=== PATIENT | female | born 1975 | race African-American/Black ===

== ENCOUNTER 2018-01-29 14:36 | Inpatient (IN) | payer OTHER ==
[2018-01-29] MEDS ORDERED: SODIUM CHLORIDE 1,000 ML IV STA ×2 (15:44→21:46)
--- NOTE | 2018-01-29 15:51 | PDOC ---
Attending Attestation - Resident Resident Name: Kerry Sifuentes - ED Attending Attestation I have performed the following: I have examined & evaluated the patient, The case was reviewed & discussed with the resident, I agree w/resident's findings & plan, Exceptions are as noted - HPI HPI: 01/29/18 15:51 The patient is a 42 year old transgender Female with a significant past medical history of sickle cell (+acute chest in the past, s/p exchange transfusion), hx of DVT (currently off a/c), HIV, sent for evaulation of LLE pain for the past few days from [facility] where she is currently undergoing detox from heroin. No history of trauma/injuries, She reports her pain is 7/10 in severity consistent with prior episodes of her sickle cell./ pt ntoes that she hesitated in telling anyone at rehab due to concern that she is undergoing rehab and thought she could tough it out, also expresses concern of narcotic analgesia as she is underoing detox. (she normally gets dialudid and beandryl for pain). The patient denies chest pain, shortness of breath, fever/chills, cough, headache and dizziness. The patient denies nausea, vomit, diarrhea and constipation. The patient denies dysuria, frequency, urgency and hematuria. Pt denies any headache, back pain, numbness/tingling/weakness. Allergies: NKDA - Physicial Exam PE: 01/29/18 17:32 GENERAL: The patient is awake, alert, and fully oriented, Nontoxic - in no acute distress. HEAD: Normocephalic, atraumatic. EYES: extraocular movements intact, sclera anicteric, conjunctiva clear. ENT: Normal voice, Moist mucous membranes. NECK: Normal range of motion, supple LUNGS: Breath sounds equal, clear to auscultation bilaterally. No wheezes, no rhonchi, no rales. HEART: Regular rate and rhythm, normal S1 and S2 without murmur, rub or gallop. ABDOMEN: Soft, nontender, normoactive bowel sounds. No guarding, no rebound. . No CVA tenderness EXTREMITIES: mild diffus tenderness of LLE, +pitting edema of LLE, +calf tenderness of LLE. NEUROLOGICAL: No facial assymetry, Normal speech, PSYCH: Normal mood, normal affect. SKIN: Warm, Dry, normal turgor, - Medical Decision Making 01/29/18 17:32 likely sickle cell pain crisis, no change from prior concern for possible dvt will obtain blood work will obtain dvt study no cp/cough/sob to suggest acute chest pt declines morphine, states she would like to try non opiates will try ketamine at 0.25mg/kg, and tylenol. if not effective will try morphine 01/29/18 19:32 labs noted for elev retic count slight anemia (pt notes she is tranfused when she is in the low 7s) pt still has pain w/ ketamine, anticipate admission for further management of her pain
[2018-01-29] MEDS ORDERED: ACETAMINOPHEN INJECTION 100 ML IVPB ONE (16:10)
[2018-01-29] MEDS: ACETAMINOPHEN 1000 MG/100 ML VIAL (NON FORMULARY) IVPB ONE ×2 (16:25→18:00)
[2018-01-29] MEDS ORDERED: KETAMINE HCL 200 MG/20 ML VIAL IVPUSH ONE (17:14)
[2018-01-29 17:21] LABS: EOS % 3.9 % (0-4.5); HEMATOCRIT 22.6 % (32.4-45.2); HEMOGLOBIN 7.9 GM/dL (10.7-15.3); LYMPH % 31.9 % (8-40); MCH 29.6 pg (25.7-33.7); MEAN CELL VOLUME 84.6 fl (80-96); MEAN PLT VOLUME 7.6 fl (7.5-11.1); MONO % 7.9 % (3.8-10.2); NEUT % 55.3 % (42.8-82.8); PLATELET COUNT 583 K/MM3 (134-434); RBC 2.66 M/mm3 (3.60-5.2); RDW 18.1 % (11.6-15.6); RETICULOCYTES 5.77 % (0.5-1.5); WHITE BLOOD COUNT 17.8 K/mm3 (4.0-10.0)
[2018-01-29] MEDS ORDERED: ONDANSETRON 4 MG/2 ML VIAL IVPUSH ONE (17:32)
[2018-01-29] MEDS ORDERED: KETAMINE HCL 500 MG/10 ML VIAL IV ONE (17:34)
--- NOTE | 2018-01-29 17:48 | PDOC ---
History of Present Illness - General Chief Complaint: Pain Stated Complaint: SICKLE CELL CRISIS Time Seen by Provider: 01/29/18 14:44 - History of Present Illness Initial Comments: 42yo transgender female with PMH of Sickle Cell SS, substance abuse, HIV+, DVT complaining of sickle cell crisis. Patient reports that her symptoms are consistent with previous crises and rates her pain at 7-8/10, localized to her knee and radiating downward. She is currently in an inpatient rehabilitation program at [facility] for substance abuse. Denies fever, chills, chest pain, shortness of breath, nausea, vomiting, or abdominal pain. 01/29/18 17:47 Past History - Past Medical History Allergies/Adverse Reactions: Allergies Allergy/AdvReac Type Severity Reaction Status Date / Time NSAIDS (Non-Steroidal Allergy Verified 01/29/18 14:43 Anti-Inflamma Home Medications: Ambulatory Orders Darunavir Ethanolate [Prezista] 800 mg PO DAILY 01/24/18 Folic Acid 1 mg PO DAILY 01/24/18 Raltegravir [Isentress] 400 mg PO BID 01/24/18 Ritonavir [Norvir -] 100 mg PO DAILY 01/24/18 Sertraline HCl 50 mg PO DAILY #30 tablet 01/29/18 Anemia: No Asthma: No Cancer: No Cardiac Disorders: No CVA: No COPD: No CHF: No Diabetes: No GI Disorders: No Disorders: No HTN: No Hypercholesterolemia: No Kidney Stones: No Liver Disease: No Seizures: No Thyroid Disease: No - Surgical History Cholecystectomy: Yes (05/2015) - Reproductive History PID: No - Suicide/Smoking/Psychosocial Hx Smoking History: Former smoker Have you smoked in the past 12 months: Yes Information on smoking cessation initiated: No 'Breaking Loose' booklet given: 01/24/18 Hx Alcohol Use: No Drug/Substance Use Hx: Yes Substance Use Type: Heroin Hx Substance Use Treatment: No Review of Systems - Review of Systems Comments:: Constitutional: no fever, no chills HEENT: no throat pain, no dysphagia Cardiovascular: no chest pain, no palpitations Respiratory: no cough, no shortness of breath Gastrointestinal: no abdominal pain, no nausea, no vomiting, no diarrhea, no constipation Genitourinary: no dysuria, no frequency Musculoskeletal: no myalgia, no arthralgia Skin: no rash, no itching Neurologic: no headache, no dizziness *Physical Exam - Vital Signs Last Vital Signs Temp Pulse Resp BP Pulse Ox 98.1 F 94 H 18 117/81 99 01/29/18 14:43 01/29/18 14:43 01/29/18 14:43 01/29/18 14:43 01/29/18 14:43 - Physical Exam Comments: General: Awake, alert, and fully oriented, in no acute distress Head: no signs of trauma Eyes: PERRL, EOMI, sclera anicteric ENT: moist mucus membranes, Neck: Normal ROM, supple, no lymphadenopathy, JVD, or masses Lungs: Lungs clear, Normal breath sounds Cardio: Regular rhythm, S1 and S2 present, no murmurs, rubs, or gallops Abdomen: Soft, nontender, normal bowel sounds. No guarding, no rebound, no masses Extremities: +tender left leg to movement/palpation starting superior to the knee and radiating downward, distal pulses present in all four extremities SKIN: Warm, Dry, normal turgor, no rashes or lesions noted Neurologic: Cranial nerves II through XII grossly intact. Normal speech ED Treatment Course - LABORATORY CBC & Chemistry Diagram: 01/29/18 17:10 01/29/18 17:10 - ADDITIONAL ORDERS Additional order review: 01/29/18 17:10 RBC 2.66 L MCV 84.6 MCHC 35.0 RDW 18.1 H MPV 7.6 Neutrophils % 55.3 Lymphocytes % 31.9 Monocytes % 7.9 Eosinophils % 3.9 Basophils % 1.0 - RADIOLOGY Radiology Studies Ordered: Category Date Time Status CHEST PA & LAT [RAD] Stat Radiology 01/29/18 15:44 Ordered - Medications Given in the ED: ED Medications Discontinued Medications Generic Name Dose Route Start Last Admin Trade Name Freq PRN Reason Stop Dose Admin Acetaminophen 1,000 mg 01/29/18 15:54 01/29/18 16:25 Ofirmev Injection - IVPB 01/29/18 15:55 1,000 mg ONCE ONE Administration Sodium Chloride 1,000 mls @ 1,000 mls/hr 01/29/18 15:44 01/29/18 16:25 Normal Saline - IV 01/29/18 16:43 1,000 mls/hr ASDIR STA Administration Medical Decision Making - Medical Decision Making 42yo F with sickle cell SS. Crisis is consistent with previous episodes. While patient usually receives dilaudid for similar crises, she is currently in a substance abuse rehabilitation program and is amenable to trying alternative treatment. Ordered labs: CBC, CMP, Haptoglobin, LDH, Reticulocyte, Chest PA/Lat ; Giving Ketamine, Benadryl, Zofran, IV Fluids 01/29/18 18:08 Ketamine did not alleviate the patient's pain. Morphine ordered. CXR shows "no acute disease." IV access was very difficult in this patient, delaying morphine administration. Patient now also endorsing pain in right leg and right lower abdomen. Patient refused ultrasound until she received pain medication. Reticulocytes count elevated at 5.77 indicating hemolysis. Hemoglobin trending downward, now at 7.9. Patient says she usually receives transfusions when her level decreases below 7. 01/29/18 20:56 Laboratory Tests 01/29/18 01/29/18 01/29/18 17:10 17:10 17:10 WBC 17.8 H RBC 2.66 L Hgb 7.9 L Hct 22.6 L MCV 84.6 MCH 29.6 MCHC 35.0 RDW 18.1 H Plt Count 583 H MPV 7.6 Absolute Neuts (auto) 9.8 Total Counted 100 Neutrophils % 55.3 Neutrophils % (Manual) 54.0 Band Neutrophils % 2.0 Lymphocytes % 31.9 Lymphocytes % (Manual) 35.0 Monocytes % 7.9 Monocytes % (Manual) 7 Eosinophils % 3.9 Eosinophils % (Manual) 2.0 Basophils % 1.0 Nucleated RBC % 1 H Hypochromia 2+ Platelet Estimate Increased Platelet Comment No clumping noted Polychromasia 1+ Anisocytosis 1+ Microcytosis 1+ Target Cells 2+ Tear Drop Cells 1+ Ovalocytes 1+ Retic Count 5.77 H Sodium 137 Potassium 5.0 Chloride 106 Carbon Dioxide 22 Anion Gap 9 BUN 14 Creatinine 1.0 Creat Clearance w eGFR > 60 Random Glucose 108 H Calcium 8.6 Total Bilirubin 0.7 AST 47 H ALT 52 Alkaline Phosphatase 104 D LD Total 256 H Total Protein 7.3 Albumin 3.5 Blood Type O POSITIVE Antibody Screen Negative Spoke with Dr. Moore's inpatient team who will accept this patient. 01/29/18 22:35 *DC/Admit/Observation/Transfer Diagnosis at time of Disposition: Sickle cell crisis - Discharge Dispostion Condition at time of disposition: Stable Decision to Admit order: Yes - Referrals - Patient Instructions - Post Discharge Activity
[2018-01-29 17:50] LABS: ALBUMIN 3.5 g/dl (3.4-5.0); ANION GAP 9 (8-16); BILIRUBIN,TOTAL 0.7 mg/dL (0.2-1.0); BLOOD UREA NITROGEN 14 mg/dL (7-18); CALCIUM 8.6 mg/dL (8.5-10.1); CHLORIDE 106 mmol/L (98-107); CO2 22 mmol/L (21-32); GLUCOSE,RANDOM 108 mg/dL (74-106); SGPT/ALT 52 U/L (12-78); SODIUM 137 mmol/L (136-145); TOT PROT 7.3 g/dl (6.4-8.2)
[2018-01-29 17:51] LABS: ALK PHOS 104 U/L (45-117)
[2018-01-29 18:00] LABS: SGOT/AST 47 U/L (15-37)
[2018-01-29 18:01] LABS: LDH 256 U/L (84-246)
[2018-01-29 18:03] LABS: ANISOCYTOSIS 1+; OVALOCYTE 1+; TARGET CELLS 2+; TEAR DROP CELLS 1+
[2018-01-29 18:04] LABS: PLATELET ESTIMATE INCREASED
[2018-01-29] MEDS ORDERED: ONDANSETRON 4 MG/2 ML VIAL ONE ×2 (18:28→18:29)
[2018-01-29] MEDS ORDERED: KETAMINE HCL 200 MG/20 ML VIAL IVPB ONE (18:30)
[2018-01-29] MEDS ORDERED: morphine CARPU-JECT 4 MG/1 ML DISP.SYRIN IVPUSH ONE (19:30)
[2018-01-29] MEDS ORDERED: MORPHINE SULFATE 2 MG/ML VIAL ONE (19:51)
[2018-01-29] MEDS ORDERED: morphine SULFATE 4 MG/ML VIAL ONE (19:51)
[2018-01-29] MEDS ORDERED: morphine CARPU-JECT 2 MG/1 ML DISP.SYRIN IVPUSH ONE (22:04)
[2018-01-29] MEDS ORDERED: MORPHINE SULFATE 10 MG/1 ML *VIAL ONE (22:10)
--- NOTE | 2018-01-29 22:41 | HP ---
CHIEF COMPLAINT: PCP: HISTORY OF PRESENT ILLNESS: 42 y/o transgender male to F w/ PMH of sickle cell (+acute chest in the past, s /p exchange transfusion), hx of DVT (currently off a/c), HIV disease on HAART ( Biktarvy), p/w LLE pain for the past few days from [facility] where she is currently undergoing detox from heroin. Pain is 8/10 in severity consistent with prior episodes of her sickle cell. Describes as achy and located above knee and radiates to the foot. Tried bengay, tylenol, and flexoral but didnt help. Does not know any known triggers, says she was drinking well, wasn't cold , and denies any stress. She has had multiple episodes of chest syndrome requiring exchange transfusion ( 5 in her life), multiple prior blood transfusions, and intubations with ICU care. Gets a crisis every 1-2 mo. last crisis was a month ago and required ICU but no intubation. Has gone 17 mo w/o crisis, longest time Denies fever, chills, chest pain, shortness of breath, nausea, or vomiting, or trauma. ER course was notable for: (1) zofran, fluids, ketamine x2 (per pt request, did not want to start w/ opiates bec in rehab, benadryl, morphine total 16mg (2) pt began endorsing R leg pain and RLQ RUQ pain, (3)LLE duplex - negative for DVT Recent Travel: PAST MEDICAL HISTORY: [facility] 01/24 Last detox prior to [facility] July 2016 osteo-necrosis right knee and hip PAST SURGICAL HISTORY: jimmy splenectomy 2010 - UTD immunization, does not take Flu shots Social History: Smoking: intermittent use 0.5ppd/25yr Alcohol:social Drugs: cocaine heroine crystal meth Family History: CA: Father (, throat CA, sickle cell trait), Other: Father, Mother ( sickle cell trait, HTN , alive ) Allergies NSAIDS (Non-Steroidal Anti-Inflamma Allergy (Verified 01/29/18 14:43) HOME MEDICATIONS: HAART therapy switched to biktarvy Home Medications Medication Instructions Recorded Darunavir Ethanolate [Prezista] 800 mg PO DAILY 01/24/18 Folic Acid 1 mg PO DAILY 01/24/18 Raltegravir [Isentress] 400 mg PO BID 01/24/18 Ritonavir [Norvir -] 100 mg PO DAILY 01/24/18 Sertraline HCl 50 mg PO DAILY #30 tablet 01/29/18 REVIEW OF SYSTEMS Reviewed in HPI PHYSICAL EXAMINATION Vital Signs - 24 hr 01/29/18 01/29/18 14:43 19:06 Temperature 98.1 F Pulse Rate 94 H Respiratory 18 Rate Blood Pressure 117/81 O2 Sat by Pulse 99 99 Oximetry (%) GENERAL: Awake, alert, and fully oriented, anxious and agitated HEAD: Normal with no signs of trauma. EYES: Pupils equal, round and reactive to light, extraocular movements intact, sclera anicteric, conjunctiva clear. No lid lag. EARS, NOSE, THROAT: Ears normal, nares patent, oropharynx clear without exudates. Moist mucous membranes. NECK: Normal range of motion, supple without lymphadenopathy, JVD, or masses. LUNGS: large Breasts Breath sounds equal, clear to auscultation bilaterally. No wheezes, and no crackles. No accessory muscle use. HEART: Tachy Regular rhythm, normal S1 and S2 without murmur, rub or gallop. ABDOMEN: TTP RUQ RLQ, exam somewhat limited pt would not let touch. distended normoactive bowel sounds, no guarding, no rebound, no masses. No hepatomegaly MUSCULOSKELETAL: Normal range of motion at all joints. No bony deformities or tenderness. No CVA tenderness. UPPER EXTREMITIES: 2+ pulses, warm, well-perfused. No cyanosis. No clubbing. No peripheral edema. LOWER EXTREMITIES: 2+ pulses, warm, well-perfused. No peripheral edema. TTP LE calf b/l, exam somewhat limited pt would not let touch NEUROLOGICAL: Cranial nerves II-XII intact. Normal speech. Normal gait. SKIN: Warm, dry, normal turgor, no rashes or lesions noted, normal capillary refill. Laboratory Results - last 24 hr 01/29/18 01/29/18 01/29/18 17:10 17:10 17:10 WBC 17.8 H RBC 2.66 L Hgb 7.9 L Hct 22.6 L MCV 84.6 MCH 29.6 MCHC 35.0 RDW 18.1 H Plt Count 583 H MPV 7.6 Absolute Neuts (auto) 9.8 Total Counted 100 Neutrophils % 55.3 Neutrophils % (Manual) 54.0 Band Neutrophils % 2.0 Lymphocytes % 31.9 Lymphocytes % (Manual) 35.0 Monocytes % 7.9 Monocytes % (Manual) 7 Eosinophils % 3.9 Eosinophils % (Manual) 2.0 Basophils % 1.0 Nucleated RBC % 1 H Hypochromia 2+ Platelet Estimate Increased Platelet Comment No clumping noted Polychromasia 1+ Anisocytosis 1+ Microcytosis 1+ Target Cells 2+ Tear Drop Cells 1+ Ovalocytes 1+ Retic Count 5.77 H Sodium 137 Potassium 5.0 Chloride 106 Carbon Dioxide 22 Anion Gap 9 BUN 14 Creatinine 1.0 Creat Clearance w eGFR > 60 Random Glucose 108 H Calcium 8.6 Total Bilirubin 0.7 AST 47 H ALT 52 Alkaline Phosphatase 104 D LD Total 256 H Total Protein 7.3 Albumin 3.5 Blood Type O POSITIVE Antibody Screen Negative ASSESSMENT/PLAN: 42 y/o transgender male to F w/ PMH of sickle cell (+acute chest in the past, s /p exchange transfusion), hx of DVT (currently off a/c), HIV disease on HAART ( Biktarvy), p/w LLE pain for the past few days consistent with prior episodes of sickle cell pain crisis. pt from [facility] where she is currently undergoing detox from heroin. Sickle Cell vaso occlusive Crisis - Doppler scan r/o DVT in her LLE. Her new RLQ RUQ pain is concerning - will get a CT abdomen to rule out appendicitis. -tx with IV morphine 6 mg q 3 hours PRN, benadryl 12.5 mg PO q 6 hours and NS at 100 ml/hour -can increase morphine if pain remains unctl -pain management consult Hb was 9.2 on 01/25/18 at [facility] and now is 7.9 - she may have been dehydrated because BUN/Cr was 25/1.5 mg/dL on 01/25/18. She does not know her baseline HCT. -will not transfuse at this time -monitor HCT and retic count. -Consult hematology. HIV disease - Per pt CD4 788 w/ undect viral load -Continue HAART. -Consult ID. Substance abuse - -return to [facility] to continue rehab upon discharge. -encourage cessation and give support Tobacco Use -Nicotine patch -encourage cessation and give support #FEN -IV NS 100cc/hr -replete lytes as needed -NPO for now for possible acute abd, f/u CT A/P #DVTppx SQH 5000U tid #Dispo -admit to meds surg -Full code case and plan discussed w/ attending Dr. Teresa Orozco MD, PGY1 Visit type - Emergency Visit Emergency Visit: Yes ED Registration Date: 01/30/18 Care time: The patient presented to the Emergency Department on the above date and was hospitalized for further evaluation of their emergent condition. - New Patient This patient is new to me today: Yes Date on this admission: 01/30/18 - Critical Care Critical Care patient: No Hospitalist Screening - Colonoscopy Questionnaire Colonoscopy Questionnaire: Colonoscopy Questionnaire - Patient: 50 - 75 years old and never had a screening colonoscopy: Unknown History of colon or rectal polyps, or CA: Unknown History of IBD, Crohn's disease or UC: Unknown History of abdominal radiation therapy as a child: Unknown - Relative: 1 with colon or rectal CA, or polyps at age 60 or younger: Unknown Colon or rectal CA diagnosed at age 45 or younger: Unknown Multiple relatives with colon or rectal CA: Unknown - Outcome: Screening Result: Negative Screen
--- NOTE | 2018-01-29 22:49 | PN ---
Teaching Attending Note Name of Resident: Kaiden Orozco ATTENDING PHYSICIAN STATEMENT I saw and evaluated the patient. I reviewed the resident's note and discussed the case with the resident. I agree with the resident's findings and plan as documented. SUBJECTIVE: Patient is a 42 year old transgender female with PMH of Sickle Cell SS, substance abuse, splenectomy, depression, osteonecrosis of right hip and knee, HIV disease on HAART (Biktarvy) and DVT complaining of left knee and leg pain. Patient reports that her symptoms are consistent with previous crises and rates her pain at 7-8/10, localized to her knee and radiating downward. She is currently in an inpatient rehabilitation program at [facility] for substance abuse (cocaine and heroin). She has had multiple episodes of chest syndrome requiring exchange transfusion, prior blood transfusions, and intubation with ICU care. Denies fever, chills, chest pain, shortness of breath, nausea, or vomiting. While in the ER she started complaining of RLQ abdominal pain - not a usual site for her sickle cell pain crisis. OBJECTIVE: Vital Signs Period Temp Pulse Resp BP Sys/Llily Pulse Ox Last 24 Hr 98.1 F 94 18 117/81 99-99 HEENT: No Jaundice, eye redness or discharge, PERRLA, EOMI. Normocephalic, atraumatic. External ears are normal and hearing is grossly intact. No nasal discharge. Neck: Supple, nontender. No palpable adenopathy or thyromegaly. No JVD Chest: Good effort. Clear to auscultation and percussion. Heart: Regular. No S3, rub or murmur Abdomen: Not distended, soft, RLQ tenderness; no Hepatomegaly. No rebound or guarding. Normoactive bowel sounds. Ext: Peripheral pulses intact. Left leg edema - not tender. Skin: Warm and dry. No petechiae, rash or ecchymosis. Neuro: Alert. Oriented x3. CN 2-12 grossly intact. Sensation grossly intact in all four extremities and DTR are symmetric. Home Medications Medication Instructions Recorded Darunavir Ethanolate [Prezista] 800 mg PO DAILY 01/24/18 Folic Acid 1 mg PO DAILY 01/24/18 Raltegravir [Isentress] 400 mg PO BID 01/24/18 Ritonavir [Norvir -] 100 mg PO DAILY 01/24/18 Sertraline HCl 50 mg PO DAILY #30 tablet 01/29/18 Abnormal Lab Results 01/29/18 01/29/18 17:10 17:10 WBC 17.8 H RBC 2.66 L Hgb 7.9 L Hct 22.6 L RDW 18.1 H Plt Count 583 H Nucleated RBC % 1 H Retic Count 5.77 H Random Glucose 108 H AST 47 H LD Total 256 H ASSESSMENT AND PLAN: 1. Sickle Cell Pain Crisis - Has features of sickle cell vaso-occlusive crisis. Will treat with IV morphine 6 mg q 3 hours PRN, benadryl 12.5 mg PO q 6 hours and NS at 100 ml/hour as well as liberal oral fluids. Her Hb/HCT was 9.2/26.4 on 01/25/18 - she may have been dehydrated (hemoconcentration) because BUN/Cr then was 25/1.5 mg/dL. She does not know her baseline HCT. We will not transfuse her at this time, but monitor HCT and retic count. Doppler scan ruled out DVT in her LLE. Her RLQ pain is concerning - will get a CT abdomen to rule out appendicitis or other intra-abdominal pathology. Consult hematology. 2. HIV disease - Continue HAART. Consult ID. 3. Tobacco Use We will provide patient all the necessary assistance to facilitate smoking cessation and prescribe Nicotine patch. 4. 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 5. DVT prophylaxis - Heparin 5000u sq tid. 6. Advance directives - Full code
[2018-01-30 00:24] VITALS: BP 150/89; PULSE 76; TEMP 98; BMI 28.1
[2018-01-30] MEDS ORDERED: MORPHINE SULFATE 10 MG/1 ML *VIAL IVPUSH PRN (01:02)
[2018-01-30] MEDS ORDERED: SODIUM CHLORIDE 1,000 ML IV SCH (01:15)
[2018-01-30] MEDS ORDERED: MELATONIN 5 MG TABLETS PO PRN (01:27)
[2018-01-30] MEDS ORDERED: HYDROmorphone HCL CARPU-JECT 1 MG/1 ML DISP.SYRIN IVPUSH PRN (02:07)
[2018-01-30] MEDS ORDERED: DOCUSATE SODIUM 100 MG CAPSULE (FP) PO PRN (02:09)
[2018-01-30] MEDS ORDERED: HYDROmorphone HCL 2 MG TABLET PO PRN (02:29)
[2018-01-30] MEDS ORDERED: HEPARIN NA (PORCINE) 5,000 UNITS/ML 1ML VIAL SQ SCH (06:00)
--- NOTE | 2018-01-30 06:45 | DS ---
Physical Examination Vital Signs: Vital Signs Temperature 98.0 F 01/30/18 00:16 Pulse Rate 76 01/30/18 00:16 Respiratory Rate 20 01/30/18 00:16 Blood Pressure 150/89 01/30/18 00:16 O2 Sat by Pulse Oximetry (%) 100 01/30/18 00:26 Labs: CBC, BMP 01/29/18 17:10 01/29/18 17:10 Discharge Summary Reason For Visit: SICKLE CELL CRISIS/HB-SS DISEASE WITH CRISIS Condition: Stable - Instructions Referrals: ON STAFF,NOT [Primary Care Provider] - Disposition: AGAINST MEDICAL ADVICE - Home Medications Comprehensive Discharge Medication List: Ambulatory Orders 42 y/o transgender male to F w/ PMH of sickle cell (+acute chest in the past, s /p exchange transfusion), hx of DVT (currently off a/c), HIV disease on HAART ( Biktarvy), p/w LLE pain for the past few days consistent with prior episodes of sickle cell pain crisis. pt from [facility] where she is currently undergoing detox from heroin. Pt received in ED ketamine x2 (per pt request, did not want to start w/ opiates bec in rehab), benadryl, Ketamine was unsuccessful and so she was switched to morphine which helped. On the floors, pain ctl was attempted w/ increasing doses of morphine, which pt refused to take, pt stated that Dilaudid worked for her in the past but then refused our rec for low starting PO dose of Dilaudid. Pt requested high doses and threatened to leave if not given the high dose. We explained to her the risks of starting w/ high dose and the benefit of gradual escalation to find therapeutic and safe dose. Pt became verbally aggressive, refused to take low dose and subsequently left AMA. This patient is new to me today: Yes Date on this admission: 01/30/18 Emergency Visit: Yes ED Registration Date: 01/30/18 Care time: The patient presented to the Emergency Department on the above date and was hospitalized for further evaluation of their emergent condition. Critical Care patient: No - Discharge Referral Referred to [facility] Med P.C.: No
[2018-01-30] MEDS ORDERED: SERTRALINE HCL 50 MG TABLET (FP) PO SCH (10:00)
[2018-01-30] MEDS ORDERED: FOLIC ACID 1 MG TABLET (FP) PO SCH (10:00)
[2018-01-30] MEDS ORDERED: NICOTINE 7 MG/24 HOURS TOPICAL PATCH TD SCH (10:00)
[2018-01-30] MEDS ORDERED: VITAMIN B COMPLEX W/C COMBO TABLET (FP) PO SCH (10:00)
== END 2018-01-30 04:00 | disposition left against medical advice (07) | DRG 662 ==
LOC: JER 14:36 → J4S 19:46 → OBSVTOIN 01-30 01:02
PROVIDERS: ADMIT Internal Medicine; ATTEND Internal Medicine
DX: D57.00 Hb-SS disease with crisis, unspecified (principal); F19.10 Other psychoactive substance abuse, uncomplicated; Z21 Asymptomatic human immunodeficiency virus [HIV] infection status; F14.10 Cocaine abuse, uncomplicated; Z90.81 Acquired absence of spleen; F17.210 Nicotine dependence, cigarettes, uncomplicated; Z86.718 Personal history of other venous thrombosis and embolism; F32.9 Major depressive disorder, single episode, unspecified; M87.88 Other osteonecrosis, other site
CPT/HCPCS: 36415; 71046-TC-FY; 80053; 83010; 83615; 85025; 85044; 86850; 86900; 86901; 93971-TC; 99282-25; G0378; J0131; J7030